=== PATIENT | female | born 1955 | race Caucasian/White ===

== ENCOUNTER → 2022-05-01 13:15 | Outpatient (CLI) | payer OTHER, SELFPAY ==
--- NOTE | ~2022-05-01 | MR_ITS ---
EXAMINATION: MR abdomen wo/w con INDICATION: Lesion of the liver TECHNIQUE: Coronal SSFSE ARC, WATER:coronal LAVA-FLEX, Coronal 2D FIESTA FatSat, Axial SSFSE BH ARC, Axial 3D DualEcho BH, Axial SSFSE-IR, Axial DWI b=500, Axial 2D FIESTA FatSat, pre and dynamic postco ntrast Axial LAVA ARC, postcontrast Coronal In and Opposed phase LAVA FLEX COMPARISON: None available CONTRAST: Multihance, 9 cc FINDINGS: Respiratory motion artifact limits multiple sequences as well as a postcontrast sequences. Cysts of the liver measure up to 9 mm. No suspicious liver lesion is identified. There is loss of hep atic parenchymal signal on opposed phase imaging, consistent with hepatic steatosis. There is a large volume of ingested material in the stomach. The spleen, pancreas, gallbladder, and adrenal glands ar e normal. Cysts of the kidneys measure up to 4 mm on the right. There are no pathologically enlarged abdominal lymph nodes. There are no dilated loops of bowel. A large volume of colonic stool is presen t. IMPRESSION: 1. No suspicious liver lesion identified. Reviewed, dictated and finalized at location F. ONICS ENGINEER
== END ==
PROVIDERS: PCP Physician Assistant; Visit Provider Physician Assistant
DX: K76.9 Liver disease, unspecified (principal)
CPT/HCPCS: 74183; A9577

== ENCOUNTER 2023-12-11 08:53 | Outpatient (CLI) | payer OTHER, SELFPAY ==
[2023-12-11 11:03] LABS: Folic Acid > 20.0 ng/mL (2.76->20)
--- NOTE | 2023-12-11 12:45 | NEURO_ITS ---
Clinical note: : Patient is 68-year-old with history of paresthesias in both upper limbs. No history of diabetes mellitus. On a brief neurological examination no focal muscle wasting or fasciculations or weakness was identified in the upper limbs. Please refer to a detailed electrodiagnostic evaluation of upper limbs has shown below. Summary of findings: 1. Right median motor distal latency was mildly prolonged with left median motor distal latency was normal. Amplitudes were decreased on both sides. Conduction velocity is also mildly decreased. 2. Left and right ulnar motor distal latency was normal however amplitude was moderately decreased on the left and normal on the right side. Conduction velocity to a mildly decreased from elbow to wrist but showed moderate decreased conduction velocity across the elbow 3. Bilateral median palmar and digital sensory Raquel that is a mildly prolonged amplitudes are moderately decreased. Bilateral ulnar palmar sensory distal latency was normal on right and mildly prolonged on the left side however amplitudes of moderate decreased. Ulnar sensory distal latencies of more to prolonged and amplitude is moderately decreased. Bilateral radial sensory distal latencies mild moderately prolonged and amplitudes are significantly decreased. 4. EMG g up on both upper limbs the history was C5-T1 root distribution. Mild also motor unit recruitment was noted in 1st dorsal interossei on both sides and also left abductor pollicis brevis. Impression: 1. [id number] length-dependent, sensory-motor, axonal, peripheral neuropathy. Clinical correlation is recommended. EMG and nerve conduction study of the lower limbs is also recommended. 2. 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 Mild loss of recruitment was noted in 1st dorsal interossei in both sides and also right digitorum profundus ulnar heads. Soren Hernandez MD, FAAN, FAANEM Neurology/ Electrodiagnostic Medicine Nerve Conduction Studies Motor Nerve Results Latency Amplitude F-Lat Segment Distance CV Comment Site (ms) (mV) (ms) (cm) (m/s) Left Median (APB) Motor Wrist 4.2 3.2 Elbow 8.9 2.6 Elbow-Wrist 220 47 Right Median (APB) Motor Wrist 4.5 4.6 Elbow 9.4 4.8 Elbow-Wrist 210 43 Left Ulnar (ADM) Motor Wrist 3.3 3.6 Bel Elbow 8.1 3.1 Bel Elbow-Wrist 200 42 Abv Elbow 10.2 3.0 Abv Elbow-Bel Elbow 70 33 Right Ulnar (ADM) Motor Wrist 3.0 6.2 Bel Elbow 7.6 4.2 Bel Elbow-Wrist 200 43 Abv Elbow 10.1 2.9 Abv Elbow-Bel Elbow 70 28 Sensory Nerve Results Latency (Peak) Amplitude (P-P) Segment Distance CV Comment Site (ms) (?V) (cm) (m/s) Right Median DigIII Sensory Wrist-Dig III 4.2 10 Left Median-Ulnar Palmar Sensory Median Palm-Wrist 2.3 7 Palm-Wrist 80 35 Ulnar Palm-Wrist 2.4 5 Palm-Wrist 80 33 Right Median-Ulnar Palmar Sensory Median Palm-Wrist 2.4 17 Palm-Wrist 80 33 Ulnar Palm-Wrist 2.2 6 Palm-Wrist 80 36 Left Radial Sensory Forearm-Wrist 2.7 7 Forearm-Wrist 100 37 Right Radial Sensory Forearm-Wrist 2.3 7 Forearm-Wrist 100 43 Right Ulnar Sensory Wrist-Dig V 4.1 6 Wrist-Dig V 150 37 Electromyography Side Muscle Nerve Ins Act Fibs Psw Amp Dur Recrt Comment Right Deltoid Axillary Nml Nml Nml Nml Nml Nml Right Triceps Radial Nml Nml Nml Nml Nml Nml Right ExtCarUln Radial (Post Int) Nml Nml Nml Nml Nml Nml Right FlexPolLong Median (Ant Int) Nml Nml Nml Nml Nml Nml Right 1stDorInt Ulnar Nml Nml Nml Incr >12ms +1 Right Abd Poll Brev Median Nml Nml Nml Nml Nml Nml Right FlexDigProf Ulnar Nml Nml Nml Incr >12ms +1 Left Deltoid Axillary Nml Nml Nml Nml Nml Nml Left Triceps Radial Nml Nml Nml Nml Nml Nml Left ExtCarUln Radial (Post Int) Nml Nml Nml Nml Nml Nml Left FlexPolLong Median (Ant Int) Nml Nml Nml Nml Nml Nml Left 1stDorInt Ulnar Nml Nml Nml Incr >12ms +1 Left Abd Poll Brev Median Nml Nml Nml Incr >12ms +1 Left FlexDigProf Ulnar Nml Nml Nml Nml Nml Nml MTDD
[2023-12-15 11:59] LABS: Homocysteine 11.8 umol/L (<10.4)
[2023-12-16 14:34] LABS: Vitamin D 1,25 (OH)2 Total 104 pg/mL (18-72); Vitamin D2 1,25 (OH)2 <8 pg/mL; Vitamin D3 1,25 (OH)2 104 pg/mL
[2023-12-16 15:43] LABS: Methylmalonic Acid 206 nmol/L (69-390)
== END 2023-12-11 08:54 | disposition home or self-care (01) ==
PROVIDERS: PCP Physician Assistant; Visit Provider Psychiatry & Neurology Neurology
DX: G56.23 Lesion of ulnar nerve, bilateral upper limbs (principal); G60.8 Other hereditary and idiopathic neuropathies; E55.9 Vitamin D deficiency, unspecified; E11.9 Type 2 diabetes mellitus without complications; G40.909 Epilepsy, unspecified, not intractable, without status epilepticus; W19.XXXA Unspecified fall, initial encounter
CPT/HCPCS: 36415; 82607; 82652; 82746; 83090; 83921; 84443; 95886; 95911

== ENCOUNTER 2023-12-12 09:59 | Outpatient (CLI) | payer OTHER, SELFPAY ==
--- NOTE | 2023-12-18 10:11 | WPDNEUROLOGY ---
Neurology EEG Report General Information Date of Study: 12/12/23 TEST electroencephalogram DIAGNOSIS seizure disorder CONDITION OF RECORDING Neurology lab EEG NUMBER [id number] CLINICAL HISTORY History of seizure disorder EEG DESCRIPTION During wakefulness the background activity consists of posterior dominant alpha rhythm at 10-11 hertz to with an amplitude of 20-40 microvolts which appears well-formed and reactive to light. Anteriorly low amplitude mixed frequency activity was seen. There is a good anteroposterior gradient. Hyperventilation was performed for 3 minutes during which no significant abnormal background changes were seen. Photic stimulation was also performed during which no abnormal changes or driving response was noted. Did not progress to stage 2 sleep. Towards the later part of the study rare sharp transients were noted over left temporal area. IMPRESSION This is a borderline abnormal EEG due to presence of rare sharp transients noted over left temporal area. This is considered a nonspecific focal interictal abnormality and should be clinically correlated.
== END 2023-12-12 10:00 | disposition home or self-care (01) ==
PROVIDERS: PCP Physician Assistant; Visit Provider Psychiatry & Neurology Neurology
DX: G40.909 Epilepsy, unspecified, not intractable, without status epilepticus (principal); R20.0 Anesthesia of skin; Z87.828 Personal history of other (healed) physical injury and trauma; W19.XXXA Unspecified fall, initial encounter
CPT/HCPCS: 95816

== ENCOUNTER 2025-01-06 12:40 | Outpatient (CLI) | payer OTHER, SELFPAY ==
--- OUTSIDE RECORDS SUMMARY | 2024-03-24 03:20 | XMS_ITS ---
Author Organization [facility] Address [address] [place] [address] Care Team Providers Care Beater Head Name Role Phone Melisa Adhikari Primary Care Provider REASON FOR VISIT 3 Month Psych F/U & Med Refill Encounters Encounter Location Date Provider Diagnosis [place] [address] [facility] [place] [address] 03/24/2024 Melisa Adhikari Plan Of Treatment No Information Progress Notes * Jerry NORWOODOB:1955 (69 yo F)Acc No.[id number]:03/24/2024 UNLOCKED PROGRESS NOTE Patient: Tita GOLDMAN Provider: Freeman Adhikari DNP, PEPITO-KYLER, MEDICAL TYPIST :1955 A ge:69 Y S ex:Female Date:03/24/2024 Address:[address] [place], [place] [id number] Subjective: * Chief Complaints: * 1 . 3 Month Psych F/U & Med Refill. * Medical History: Objective: * Vitals: Assessment: Plan: * Treatment: * * Electronic signature of Yulia Adhikari on 01/06/2025 at 07:40 PM CLIENT RELATIONS REPRESENTATIVE Sign off status: Pending * Provider: Freeman Adhikari DNP, PEPITO-BC, MEDICAL TYPIST Date: 0 03/24/2024 Generated for Printing/Faxing/eTransmitting on: 03/08/2024 07:40 PM CLIENT RELATIONS REPRESENTATIVE
[2025-01-06 16:46] LABS: Hemoglobin A1C 5.7 % (<5.7)
--- OUTSIDE RECORDS SUMMARY | 2025-01-06 19:40 | XMS_ITS | Patient Health Record ---
Author Organization [facility] Address [address] [place] [address] Care Team Providers Care Java Consultant Name Role Phone Melisa Adhikari Primary Care Provider Allergies No Known Allergies Reason For Referral No Information Medications Medication SIG (Take, Route, Frequency, Duration) Notes Start Date End Date Status Advair Diskus 100-50 MCG/DOSE 1 puff Inhalation Twice a day Active clonazePAM 0.5 MG 1 tablet as needed O rally twice a day; Duration: 30 days 01/04/2025 Active PriLOSEC 2.5 MG as directed Orally Active amLODIPine Besylate 2.5 MG 1 tablet Oral ly Once a day; Duration: 30 day(s) Active OLANZapine 2.5 MG 1 tablet Orally Once a day; Duration: 30 days Active Venlafaxine HCl ER 37.5 MG 1 capsule wit h food Orally Once a day; Duration: 30 days 01/04/2025 Active Mirtazapine 45 MG 1 tablet Orally Once a day; Duration: 30 days Active Keppra 500 MG 1 tablet Orally ever y 12 hrs; Duration: 30 day(s) Active Venlafaxine HCl ER 150 MG 1 capsule with food Orally Once a day; Duration: 30 days Active Immunizations Vaccine Route Administration Date Status Comme nts COVID-19 Pfizer Vaccine 1ST IM Intramuscular 07/06/2021 Administered Given at [facility] Social History Tobacco Use: Social History Observation Description Date Details (start date - stop date) Unknown Tobacco Control (Standard) Question Answer Notes Tobacco use: Uses tobacco in other forms Additional Findings: Tobacco user e-cigarette Problems Problem Type SNOMED Code ICD Code Onset Dates Problem Status W/U Status Risk Notes Problem Tobacco user (123663656) Nicotine dependence, unspecified, uncomplicated (F17.200) Active confirmed Problem Generalized anxiety disorder (24651401) AUSTEN (generalized anxiety disorder) (F41.1) Active confirmed Problem Moderate recurrent major depression (84188935) Moderate episode of recurrent major depressive disorder (F33.1) Active confirmed Encounters Encounter Location Date Provider Diagnosis [facility] [address] [place] [address] 03/11/2024 Melisa Adhikari Moderate episode of recurrent major depressive disorder F33.1 and AUSTEN (generalized anxiety disorder) F41.1 [facility] [address] [place] [address] 07/06/2024 Melisa Adhikari Moderate episode of recurrent major depressive disorder F33.1 and AUSTEN (generalized anxiety disorder) F41.[address] [address] 10/15/2024 Melisa Adhikari Moderate episode of recurrent major depressive disorder F33.1 and AUSTEN (generalized anxiety disorder) F41.1 [facility] [address] [place] [address] 01/04/2025 Melisa Adhikari Moderate episode of recurrent major depressive disorder F33.1 and AUSTEN (generalized anxiety disorder) F41.[address] [address] 03/12/2024 Melisa Adhikari Moderate episode of recurrent major depressive disorder F33.[address] [address] 09/30/2024 Melisa Adhikari Moderate episode of recurrent major depressive disorder F33.[address] [address] 10/11/2024 Melisa Adhikari [address] [place] [address] 10/13/2024 Melisa Adhikari [address] [place] [address] 12/16/2024 Melisa Adhikari [address] [address] 12/23/2024 Melisa Adhikari Assessments Encounter Date Diagnosis (ICD Code) Assessment Notes Treatment Notes Treatment Clinical Notes Section Notes 03/11/2024 Moderate episode of recurrent major depressive disorder (ICD-10 - F33.1) Continue current medications. Reviewed Prescription Monitoring program. Continue services as scheduled. Labs completed recently. May self-administer medications or be administered own oral medications per [place] protocols. Provided informed consent with understanding of side effects, adverse effects, risks and benefits as well as alternative treatments as previously discussed and with the above recommended medications & other aspects of the treatment program. Agrees to return sooner if symptoms worsen or suicidal or homicidal ideations occur. 03/12/2024 Moderate episode of recurrent major depressive disorder (ICD-10 - F33.1) 07/06/2024 Moderate episode of recurrent major depressive disorder (ICD-10 - F33.1) Continue current medications. Reviewed Prescription Monitoring program. Continue services as scheduled. Labs completed recently. May self-administer medications or be administered own oral medications per [place] protocols. Provided informed consent with understanding of side effects, adverse effects, risks and benefits as well as alternative treatments as previously discussed and with the above recommended medications & other aspects of the treatment program. Agrees to return sooner if symptoms worsen or suicidal or homicidal ideations occur. 09/30/2024 Moderate episode of recurrent major depressive disorder (ICD-10 - F33.1) 10/15/2024 Moderate episode of recurrent major depressive disorder (ICD-10 - F33.1) Continue current medications. Reviewed Prescription Monitoring program. Continue services as scheduled. Labs completed recently. May self-administer medications or be administered own oral medications per [place] protocols. Provided informed consent with understanding of side effects, adverse effects, risks and benefits as well as alternative treatments as previously discussed and with the above recommended medications & other aspects of the treatment program. Agrees to return sooner if symptoms worsen or suicidal or homicidal ideations occur. 01/04/2025 Moderate episode of recurrent major depressive disorder (ICD-10 - F33.1) Wanted clonazepam increased. Increased effexor instead to help with anxiety. Educated on increase in klonopin not advised due to increased fall risk, she is also on a muscle relaxer, and ambien from another provider. Labs done recently. Continue services as scheduled. 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 Provided informed consent with understanding of side effects, adverse effects, risks and benefits as well as alternative treatments as previously discussed and with the above recommended medications & other aspects of the treatment program. Agrees to return sooner if symptoms worsen or suicidal or homicidal ideations occur. 01/04/2025 AUSTEN (generalized anxiety disorder) (ICD-10 - F41.1) 10/15/2024 AUSTEN (generalized anxiety disorder) (ICD-10 - F41.1) 07/06/2024 AUSTEN (generalized anxiety disorder) (ICD-10 - F41.1) 03/11/2024 AUSTEN (generalized anxiety disorder) (ICD-10 - F41.1) Plan Of Treatment No Information Insurance Providers Payer Name Payer Address Payer Phone Subscriber Number Group Number Insured Name Patient Relationship to Insured Coverage Start Date Coverage End Date [facility] [place] [address] [place] [address] [phone] [id number] Tita Alvarez Self - patient is the insured 1 1 Medical (General) History Medical History History ICD Code Anemia Hypertension Hx Pelvic and arm fracture after a fall. Surgical History Surgery Date(Month/Year) Gastro surgery- related to severe ulcers . Hysterectomy
--- OUTSIDE RECORDS SUMMARY | 2025-01-06 19:41 | XMS_ITS | Data Portability ---
Author Organization [facility] [employer], Main Office Address [address] [place] [address] Assessment No assessment recorded. Plan of Treatment Reminders Order Date Submit Date Provider Last Modified By Organization Details Last Modified Time Details Appointments None recorded. Lab BMP, serum or plasma 2022 023 [facility], [address] [place] [address], [id number], 3 09:50:32 hepatic function panel, serum 2022 023 [facility], [address] [place] [address], [address], 3 09:50:32 TSH + free T4, serum 2022 023 [facility], [address] [place] [address], [address], 3 09:50:32 lipid panel, serum 2022 023 [facility], [address] [place] [address], [address], 3 09:50:32 Referral None recorded. Procedures None recorded. Surgeries None recorded. Imaging None recorded. Medication Orders cephalexin 500 mg capsule 2022 023 [facility] #[id number], [address] , [place], [address], 3 14:44:17 Patient TargetsNo targets recorded. Patient InstructionsNo instructions recorded. Reason for Referral None Reported. Results Created Date Observation Date Name Description Value Unit Range Abnormal Flag Note LastModifiedBy Organization Detail LastModifiedTime 01/30/20 22 01/29/2022 NM, hepat obili loco scan, w/o CCK No observ ation record ed. [id number] [facility] ([facility] Sched[facility]) [address] [place], [address], 05/01/2022 06:20:03 03/26/19 23 03/26/2022 CT, abdom en + pelvi s, w/ contr ast No observ ation record ed. [id number] [facility] ([facility] Scheduling) [address] [place], [address], 05/01/2022 06:20:03 10/31/19 23 05/01/2022 MR, angio gram, abdom en, w/wo contr ast No observ ation record ed. [email or web address] [facility] [address], [place], [address], 11/05/2022 15:53:09 08/04/19 24 08/04/2023 imagi ng/di agnos tic resul t No observ ation record ed. [email or web address] [facility] [address] [place], [address], 08/05/2023 09:15:02 Result Notes None recorded. Problems Name Problem SNOMED Code Status Onset Date Resolution Date Notes Provider Name and Address Organization Details Recorded Time Abnormal weight gain 830436967 Active Not Available [facility] 3 06:08:40 Dyspnea 696446792 Active Not Available [facility] 3 06:08:42 Low back pain 037991169 Active Not Available [facility] 3 06:08:43 Pain in right lower limb 093848849 Active Not Available [facility] 3 06:08:43 Sinusitis 52602300 Active Not Available [facility] 3 06:08:44 Itching of skin 095731471 Active Not Available [facility] 3 06:08:45 Hypokalemi a 43424693 Active Not Available [facility] 3 06:08:45 Viral syndrome 320105829 Active Not Available [facility] 3 06:08:45 Upper respirator y infection 99433373 Active Not Available [facility] 3 06:08:46 Rhinitis 38912313 Active Not Available [facility] 3 06:08:47 Hardy's esophagus 717382049 Active 2016 Not Available [facility] 3 06:08:43 Liver function tests outside reference range 204622500 Active 2016 Not Available [facility] 3 06:08:40 Smoker 61904433 Active 2016 Not Available [facility] 3 06:08:47 Chronic obstructiv e pulmonary disease 53775074 Active 2018 Not Available [facility] 3 06:08:40 Anxiety state 544011598 Active 2018 Not Available [facility] 3 06:08:41 Anemia 938711113 Active 2018 Not Available [facility] 3 06:08:42 Depressive disorder 62081700 Active 2018 Not Available [facility] 3 06:08:44 Sleep disorder 60387349 Active 2018 Not Available [facility] 3 06:08:44 Herpes zoster 3878431 Active 2018 Not Available [facility] 3 06:08:46 Epilepsy 27849589 Active 2018 Not Available [facility] 3 06:08:48 Insomnia 320069888 Active 2020 Not Available [facility] 3 06:08:41 Gastroesop hageal reflux disease 458376956 Active 2020 Not Available [facility] 3 06:08:41 Benign essential hypertensi on 3061058 Active 2021 Not Available [facility] 3 06:08:40 Gastroesop hageal reflux disease without esophagiti s 331131116 Active 2021 Not Available [facility] 3 06:08:42 Long-term drug therapy Active 2021 Not Available [facility] 3 06:08:42 Anxiety 01477658 Active 2021 Not Available [facility] 3 06:08:46 Hyperlipid emia 53701531 Active 2021 Not Available [facility] 3 06:08:46 Iron deficiency anemia 53755709 Active 2021 Not Available [facility] 3 06:08:48 Hammer toe 092506194 Active 2021 Not Available [facility] 3 06:08:40 Pain in bilateral feet 8477201829830 9102 Active 2021 Not Available [facility] 3 06:08:40 Foot callus 691159344 Active 2021 Not Available [facility] 3 06:08:41 Bunion 934886244 Active 2021 Not Available [facility] 3 06:08:44 Bunion 787435948 Active 2021 Not Available [facility] 3 06:08:45 Pain in right foot 2478464224091 07 Active 2021 Not Available [facility] 3 06:08:43 Edema of right lower limb 078319210 Active 2021 Not Available [facility] 3 06:08:48 Hammer toe 335646628 Active 2021 Not Available [facility] 3 06:08:40 Pain in toe 972130172 Active 2021 Not Available [facility] 3 06:08:43 [place] of toe 46782807 Active 2021 Not Available [facility] 3 06:08:45 Dystrophia unguium 01629874 Active 2021 Not Available [facility] 3 06:08:48 Steatotic liver disease 011756017 Active 2021 Not Available [facility] 3 06:08:41 Gallstone 536433428 Active 2021 Not Available [facility] 3 06:08:41 Liver enzymes level above reference range 632487632 Active 2021 Not Available [facility] 3 06:08:47 Jaundice 76594091 Active 2022 Not Available [facility] 3 06:08:40 Eruption 438177545 Active 2022 Not Available [facility] 3 06:08:42 Pruritic rash 00406452 Active 2022 Not Available [facility] 3 06:08:47 Abnormal weight loss 628629860 Active 2022 Not Available [facility] 3 06:08:42 Stasis dermatitis 01269745 Active 2022 Not Available [facility] 3 06:08:44 Enlarged adrenal gland 486421181 Active 2022 Not Available [facility] 3 06:08:42 Lesion of liver 346364189 Active 2022 Not Available [facility] 3 06:08:43 Claustroph obia 44180012 Active 2022 Not Available [facility] 3 06:08:41 Abrasion of skin of right upper arm 3558194236240 9103 Active 2022 [facility] Robertson [address] [place] [address], [phone] , [facility] [employer] [facility] 3 14:44:02 Problem Notes None recorded. Procedures Surgical History Date Name Laterality Status Provider Name and Address Organization Details Recorded Time 01/02/20 18 Date of Last Colonoscopy completed Not Available [facility] 05/01/2022 06:00:01 01/02/20 18 Colonoscopy completed Not Available [facility] 05/02/19 06:00:07 03/03/19 10 Orthopedic Surgery completed Not Available [facility] 05/01/2022 06:00:07 other completed Not Available [facility] 03/2022 06:00:07 other completed Not Available [facility] 03/2022 06:00:07 Hysterectomy completed Not Available [facility] 05/01/2022 06:00:07 Imaging Results None recorded. Procedure Notes None recorded. Medical Equipment None Reported. Allergies Allergen ID Allergen Name Allergen Category Reaction Reaction Severity Criticality Documentation Date Start Date Code Code System Note Provider Name and Address Organization Details Recorded Time 69001 gabapenti n medicatio n diarrhea Not available Not available 05/01/2022 95140 RxNorm Not Available [facility] 3 06:19:33 Medications Name Sig Start Date Stop Date Status Note LastModified by Organization Details LastModified Time carisoprodo l 350 mg tablet TAKE 1 TABLET BY MOUTH TWICE A DAY NEEDED active Not Available Not Available No t Available celecoxib 200 mg capsule 03/17 completed Not Available Not Available Not Available amoxicillin 500 mg capsule TAKE 1 CAPSULE BY MOUTH THREE TIMES A DAY UNTIL GONE active Not Available Not Available No t Available fluconazole 100 mg tablet 12/17 completed Not Available Not Available Not Available nystatin 100,000 unit/mL oral suspension active Not Available Not Available N ot Available venlafaxine ER 37.5 mg capsule,ext ended release 24 hr TAKE 1 CAPSULE BY MOUTH EVERY DAY WITH FOOD FOR 30 DAYS 03/06 completed Not Available Not Available Not Available prednisone 10 mg tablet 20 x 5 days, 10 x 5 days active Not Available Not Available No t Available venlafaxine ER 75 mg capsule,ext ended release 24 hr TAKE 1 CAPSULE BY MOUTH EVERY DAY WITH FOOD FOR 30 DAYS active Not Available Not Available No t Available doxycycline hyclate 100 mg capsule Take 1 capsule twice a day by oral route. 12/17 completed Not Available Not Available Not Available ammonium lactate 12 % lotion APPLY TWICE DAILY NEEDED active Not Available Not Available No t Available trazodone 50 mg tablet Take 1 tablet every day by oral route at bedtime for 90 days. 03/31 completed Not Available Not Available Not Available triamcinolo ne acetonide 0.5 % topical cream APPLY A THIN APPLICATI ON ONTO THE LOWER LEG RASH TWICE DAILY ONLY NEEDED active Not Available Not Available No t Available azithromyci n 250 mg tablet TAKE 2 TABLETS (500 MG) BY ORAL ROUTE ONCE DAILY FOR 1 DAY THEN 1 TABLET (250 MG) BY ORAL ROUTE ONCE DAILY FOR 4 DAYS 02/21 completed Not Available Not Available Not Available levetiracet am 500 mg tablet TAKE 1 TABLET BY MOUTH TWICE A DAY. MAKE/KEEP APPOINTME NT active Not Available Not Available No t Available hydrocodone 5 mg-acetamin ophen 325 mg tablet Take 1 tablet 3 times a day by oral route as needed. 03/17 completed Not Available Not Available Not Available clotrimazol e-betametha sone 1 %-0.05 % lotion APPLY TO THE SKIN ONCE EVERY 12 HOURS 03/21 completed Not Available Not Available Not Available meloxicam 15 mg tablet Take 1 tablet every day by oral route. 03/17 completed Not Available Not Available Not Available sucralfate 1 gram tablet Take 1 tablet twice a day by oral route. 03/17 completed Not Available Not Available Not Available prednisone 20 mg tablet TAKE 3 TABLETS BY MOUTH ONCE DAILY FOR 5 DAYS 03/22 completed Not Available Not Available Not Available clonazepam 0.5 mg tablet TAKE 1 TABLET BY MOUTH TWICE A DAY NEEDED FOR 30 DAYS active Not Available Not Available No t Available olanzapine 5 mg tablet TAKE 1 TABLET BY MOUTH EVERYDAY AT BEDTIME active Not Available Not Available No t Available permethrin 5 % topical cream APPLY 1 APPLICATI ON ONCE, LEAVE ON FOR 8-14 HOURS BEFORE WASHING OFF 04/17 completed Not Available Not Available Not Available venlafaxine ER 150 mg capsule,ext ended release 24 hr TAKE 1 CAPSULE BY MOUTH EVERY DAY WITH FOOD active Not Available Not Available No t Available olanzapine 10 mg tablet TAKE 1 TABLET BY MOUTH EVERY DAY active Not Available Not Available No t Available Advair Diskus 100 mcg-50 mcg/dose powder for inhalation TAKE 1 PUFF BY MOUTH TWICE A DAY *RINSE MOUTH AFTER USE* 2022 active Not Available Not Available Not Avai lable amlodipine 2.5 mg tablet TAKE 1 TABLET BY MOUTH EVERY DAY IN THE EVENING active Not Available Not Available No t Available potassium chloride ER 10 mEq tablet,exte nded release Take 2 tablets every day by oral route. active Not Available Not Available No t Available Klor-Con 20 mEq oral packet MIX 1 PACKET IN 6 OZ OF WATER/JUI CE AND DRINK TWICE DAILY AFTER MEALS active Not Available Not Available No t Available fexofenadin e 180 mg tablet TAKE ONE TABLET DAILY 12/17 completed Not Available Not Available Not Available olanzapine 2.5 mg tablet TAKE 1 TABLET BY MOUTH EVERY DAY active Not Available Not Available No t Available omeprazole 40 mg capsule,del ayed release Take 1 capsule every day by oral route. 2023 active Not Available Not Available Not Avai lable aspirin 81 mg tablet,pietro yed release active Not Available Not Available Not Available tramadol 50 mg tablet Take 1 tablet every 6 hours by oral route. 03/17 completed Not Available Not Available Not Available acyclovir 800 mg tablet Take 1 tablet 5 times a day by oral route for 10 days. active Not Available Not Available No t Available alprazolam 0.5 mg tablet TAKE ONE TABLET TWICE DAILY NEEDED active Not Available Not Available No t Available Valium 5 mg tablet take 1-2 tabs po prior to MRI testing active Not Available Not Available No t Available benzonatate 100 mg capsule Take 1 capsule 3 times a day by oral route. active Not Available Not Available No t Available cephalexin 500 mg capsule TAKE 1 CAPSULE BY MOUTH EVERY 8 HOURS FOR 7 DAYS. active Not Available Not Available No t Available mirtazapine 30 mg tablet TAKE 1 TABLET BY MOUTH EVERY DAY AT BEDTIME FOR 30 DAYS 10/10 completed Not Available Not Available Not Available ferrous sulfate 325 mg (65 mg iron) tablet TAKE 1 TABLET BY MOUTH EVERY DAY WITH BREAKFAST active Not Available Not Available No t Available nystatin-tr iamcinolone 100,000 unit/g-0.1 % topical cream active Not Available Not Available Not Available triamcinolo ne acetonide 0.025 % topical ointment APPLY A THIN LAYER TO THE AFFECTED AREA(S) BY TOPICAL ROUTE 2 TIMES PER DAY active Not Available Not Available No t Available omeprazole 20 mg capsule,del ayed release TAKE 1 CAPSULE BY MOUTH EVERY DAY 03/14 completed Not Available Not Available Not Available Banophen 25 mg capsule TAKE 1 CAPSULE BY MOUTH EVERY 6 HOURS NEEDED FOR ALLERGY CONTROL active Not Available Not Available No t Available gentamicin 0.1 % topical cream APPLY A THIN LAYER WITH THE TRIAMCINO LONE CREAM TWICE DAILY TO LOWER LEG RASH USE NEEDED active Not Available Not Available No t Available mirtazapine 45 mg tablet TAKE 1 TABLET BY MOUTH EVERY DAY FOR 30 DAYS active Not Available Not Available No t Available folic acid 1 mg tablet Take 1 tablet every day by oral route. active Not Available Not Available No t Available etodolac 400 mg tablet active Not Available Not Available Not Available montelukast 10 mg tablet Take 1 tablet every day by oral route. active Not Available Not Available No t Available hydroxyzine HCl 25 mg tablet TAKE ONE TABLET DAILY AT BEDTIME 09/28 completed Not Available Not Available Not Available diclofenac sodium 50 mg tablet,pietro yed release TAKE ONE TABLET TWICE DAILY WITH FOOD OR MILK 08/06 completed Not Available Not Available Not Available zolpidem 5 mg tablet TAKE 1 TABLET BY MOUTH EVERY DAY AT BEDTIME *DO NOT TAKE WITH CARISOPRO DOL* 2023 active Not Available Not Available Not Avai lable mirtazapine 15 mg tablet TAKE 1 TABLET BY MOUTH EVERY DAY AT BEDTIME FOR 30 DAYS 06/26 completed Not Available Not Available Not Available gabapentin 100 mg capsule Take 1 capsule 3 times a day by oral route. 03/17 completed Not Available Not Available Not Available mirtazapine 15 mg disintegrat ing tablet Place 1 tablet every day by transling ual route. 09/16 completed Not Available Not Available Not Available zolpidem 10 mg tablet active Not Available Not Available No t Available methylpredn isolone 4 mg tablets in a dose pack use as instructe d on pack 02/21 completed Not Available Not Available Not Available albuterol sulfate HFA 90 mcg/actuati on aerosol inhaler INHALE 2 PUFFS EVERY FOUR HOURS NEEDED active Not Available Not Available No t Available fluticasone propionate 50 mcg/actuati on nasal spray,suspe nsion [place] 1 spray twice a day by intranasa l route. active Not Available Not Available No t Available doxycycline hyclate 100 mg tablet 03/17 completed Not Available Not Available Not Available olanzapine 5 mg disintegrat ing tablet Place 1 tablet every day by transling ual route. 09/16 completed Not Available Not Available Not Available clonazepam 0.5 mg disintegrat ing tablet Place 1 tablet twice a day by transling ual route. 09/16 completed Not Available Not Available Not Available rosuvastati n 5 mg tablet TAKE 1 TABLET BY MOUTH EVERY OTHER DAY active Not Available Not Available No t Available mirtazapine 7.5 mg tablet TAKE ONE TABLET DAILY AT BEDTIME 10/01 completed Not Available Not Available Not Available Symbicort 160 mcg-4.5 mcg/actuati on HFA aerosol inhaler INHALE 2 PUFFS TWICE A DAY active Not Available Not Available No t Available Dulera 100 mcg-5 mcg/actuati on HFA aerosol inhaler active Not Available Not Available Not Available Suprep Bowel Prep Kit 17.5 gram-3.13 gram-1.6 gram oral solution 03/17 completed Not Available Not Available Not Available potassium chloride ER 20 mEq tablet,exte nded release Take 1 tablet twice a day by oral route. 03/22 completed Not Available Not Available Not Available Flublok Quad (PF) 180 mcg (45 mcg x 4)/0.5 mL IM syringe IMMUNIZAT ION active Not Available Not Available No t Available Fluzone Quad (PF) 60 mcg (15 mcg x 4)/0.5 mL IM syringe active Not Available Not Available N ot Available Fluzone High-Dose Quad (PF) 240 mcg/0.7 mL IM syringe active Not Available Not Available N ot Available Vitals Date Recorded Body mass index (BMI) Body height Oxygen saturation Oxygen saturation in Arterial blood by Pulse oximetry Heart rate Body temperature Body weight Systolic And Diastolic Provider Name and Address Organization Details Last Updated DateTime 3 15.5 kg/m2 167.64 cm 96 % 96 % 99 /min 96.7 [degF] 18856.8 7 g 118/84 mm[Hg] Not Available [facility] 3 06:03:18 Date Recorded Body mass index (BMI) Body height Oxygen saturation Oxygen saturation in Arterial blood by Pulse oximetry Heart rate Respiratory rate Body temperature Body weight Provider Name and Address Organization Details Last Updated DateTime 3 16.9 kg/m2 167.64 cm 95 % 95 % 104 /min 16 /min 97.9 [degF] 23840.4 g Not Available [facility] 3 06:03:28 Date Recorded Body mass index (BMI) Body height Oxygen saturation Oxygen saturation in Arterial blood by Pulse oximetry Heart rate Respiratory rate Body temperature Body weight Systolic And Diastolic Provider Name and Address Organization Details Last Updated DateTime 3 16.5 kg/m2 167.64 cm 92 % 92 % 97 /min 16 /min 98.4 [degF] 21394.2 2 g 118/78 mm[Hg] Not Available [facility] 3 06:03:18 Date Recorded Body height Body mass index (BMI) Body weight Body temperature Heart rate Oxygen saturation Oxygen saturation in Arterial blood by Pulse oximetry Systolic And Diastolic Provider Name and Address Organization Details Last Updated DateTime 3 167.64 cm 18.1 kg/m2 42861.3 5 g 97.2 [degF] 102 /min 95 % 95 % 132/70 mm[Hg] Norma Payne RN [place] [facility] [employer] [facility] 3 14:15:35 Date Recorded Body height Heart rate Systolic And Diastolic Provider Name and Address Organization Details Last Updated DateTime 11/29/2021 167.64 cm 93 /min 138/79 mm[Hg] Not Available [facility] 05/01/2022 06:03:18 Social History Question Answer Notes LastModified by Organizat ion Details LastModified Time Tobacco Smoking Status Current Every Day Smoker Not Available [facility] 05/01/2022 05:57:39 What Is Your Level Of Caffeine Consumption? Heavy [id number] Information not available 05/01/2022 In The 14 Days Before Symptom Onset, Have You Had Close Contact With A Laboratory-confirm ed COVID-19 While That Case Was Ill? No [id number] Information not available 05/01/2022 In The 14 Days Before Symptom Onset, Have You Had Close Contact With A Person Who Is Under Investigation For COVID-19 While That Person Was Ill? No [id number] Information not available 05/01/2022 What Type Of Diet Are You Following? REGULAR [id number] Information not available 05/01/2022 Have There Been Any Changes To Your Family Or Social Situation? No [id number] Information not available 05/01/2022 Do You Use Insect Repellent Routinely? No [id number] Information not available 05/01/2022 What Was The Date Of Your Most Recent Tobacco Screening? 10/10/2021 [id number] Information not available 05/01/2022 Have You Ever Been Counseled For Unhealthy Alcohol Use? No [id number] Information not available 05/01/2022 What Is Your Relationship Status? [id number] Information not available 05/01/2022 Do You Use Your Seat Belt Or Car Seat Routinely? Yes [id number] Information not available 05/01/2022 Do You Have Smoke And Carbon Monoxide Detectors In Your Home? Yes [id number] Information not available 05/01/2022 At What Age Did You Start Smoking Tobacco? 17 [id number] Information not available 05/01/2022 How Much Tobacco Do You Smoke? No Vape [id number] [id number] Information not available 05/01/2022 Do You Use Sunscreen Routinely? Yes [id number] Information not available 05/01/2022 Has Tobacco Cessation Counseling Been Provided? No [id number] 026 Information not available 05/01/2022 Have You Recently Traveled Abroad? No [id number] Information not available 05/01/2022 Do You Have Any Dietary Restrictions? No [id number] Information not available 05/01/2022 Sex: Unknown Functional Status Question Answer Note LastModified by [employer] ion Details LastModified Time Do you use any illicit or recreational drugs? No [id number] Information not available 05/01/2022 Do you or have you ever used any other forms of tobacco or nicotine? Yes [id number] Information not available 05/01/2022 What is your level of alcohol consumption? Occasional [id number] Information not available 05/01/2022 Do you have transportation difficulties? No [id number] Information not available 05/01/2022 Are you able to walk independently without assistance or assistive devices? [employer] [id number] Information not available 05/01/2022 Do you have difficulty doing errands alone? No [id number] Information not available 05/01/2022 Are you able to care for yourself independently? Yes [id number] Information not available 05/01/2022 What is your occupation? [employer] [id number] Information not available 05/01/2022 Do you have difficulty dressing, bathing, grooming, or toileting? No [id number] Information not available 05/01/2022 Do you or have you ever used e-cigarettes or vape? Current user of electronic cigarettes [id number] Information not available 05/01/2022 What is your exercise level? None [id number] Information not available 05/01/2022 Mental Status None recorded. Family History Relationship Description Onset Age of this Age Resolved Age Notes LastModified by Organization Details LastModified Time Father No current problems or disability [id number] Not available 05/01/2022 06:00:11 Mother No current problems or disability [id number] Not available 05/01/2022 06:00:11 Mother General health good [id number] Not available 05/01/2022 06:00:11 Notes:mother is healthy and father not sure of health Medical History Condition Response SEIZURES/EPILEPSY Y ANXIETY DISORDER Y ANEMIA/BLOOD DISORDER Y ASTHMA Y DEPRESSION (INCLUDING POST ) Y HIGH CHOLESTEROL / HYPERLIPIDEMIA Y Gynecological History Statement/Question Response Date of Last Colonoscopy 01/01/2018 Obstetrics History GPAL:G 0 P 0 0 0 0 Immunizations Vaccine Type Date Status Note Provider Nam e and Address Organization Details Recorded Time Influenza, adjuvanted, quadrivalent, PF 3 completed ROBERTA García, [facility] [employer] [facility] [employer] 01/01/2023 14:42:12 SARS-COV-2 (COVID-19) vaccine, UNSPECIFIED 3 completed ROBERTA García, [facility] [employer] [facility] [employer] 01/01/2023 14:42:34 Influenza, split virus, trivalent, PF 3 completed Not Available [facility] 05/01/2022 06:19:06 Influenza, split virus, quadrivalent, preservative 0 completed Not Available [facility] 05/01/2022 06:19:06 Influenza, split virus, quadrivalent, preservative 8 completed Not Available [facility] 05/01/2022 06:19:06 Pneumococcal conjugate PCV 13 7 completed Not Available [facility] 05/01/2022 06:19:06 Influenza, split virus, trivalent, preservative 3 completed Not Available [facility] 05/01/2022 06:19:06 Influenza, split virus, quadrivalent, PF 7 completed Not Available [facility] 05/01/2022 06:19:06 Influenza, split virus, trivalent, preservative 4 completed Not Available [facility] 05/01/2022 06:19:07 Influenza, split virus, quadrivalent, PF 5 completed Not Available [facility] 05/01/2022 06:19:07 Past Encounters Encounter ID Performer Location Encounter Start Date Encounter Closed Date Diagnosis/Indication Diagnosis SNOMED-CT Code Diagnosis ICD10 Code Diagnosis IMO Codes Diagnosis Note [id number] TIMMY Robertson [facility] [place] [address] [place] [address] 09/29/2020 00:00:00 09/29/2020 15:51:09 [id number] TIMMY Robertson [facility] [place] [address] [place] [address] 02/07/2021 00:00:00 03/01/2021 13:11:50 [id number] TIMMY Robertson [facility] [place] [address] [place] [address] 03/30/2021 00:00:00 04/01/2021 09:51:38 [id number] Michael Plaza DPM [facility] [address] [address] 05/28/2021 00:00:00 05/28/2021 11:22:20 [id number] Michael Plaza DPM [facility] [address] [address] 06/11/2021 00:00:00 06/29/2021 15:07:12 [id number] Pola Lou MD [facility] [place] [address] [facility] [address], [facility] [place] [address] 06/26/2021 00:00:00 06/26/2021 22:30:51 [id number] Michael Plaza DPM [facility] [place] [address] [place] [address] 08/13/2021 00:00:00 08/13/2021 12:38:14 [id number] Pola Lou MD [facility] [place] [address] [place] [address] 10/10/2021 00:00:00 10/30/2021 21:05:31 [id number] Michael Plaza [facility]PM [facility] [place] [facility] [address] [place] [address] 11/29/2021 00:00:00 11/30/2021 10:33:30 [id number] TIMMY Robertson [facility] [place] [address] [place] [address] 03/06/2022 00:00:00 03/31/2022 17:14:46 [id number] TIMMY Robertson [facility] [place] [address] [place] [address] 03/21/2022 00:00:00 04/02/2022 18:25:28 [id number] TIMMY Robertson [facility] [place] [address] [place] [address] 04/17/2022 00:00:00 04/28/2022 22:49:21 [id number] TIMMY Robertson [facility] [place] [address] [place] [address] 10/16/2022 14:00:59 10/16/2022 14:50:06 Gastroesophageal reflux disease without esophagitis 712961441 K21.9 stable on PPI therapy Hyperlipidemia 53385574 E78.5 stable on statin therapy, due for lipids in nov. Stasis dermatitis 205128 05 I87.2 healing well, pt used PRN steroid cream when Lower ext. rash flares up Long-term drug therapy 373390128 Z79.899 routine labs due in nov. Abrasion o f skin of right upper arm [id number] S40.811A start keflex 500mg tid therapy for mild RUE skin abrasion. Health Concerns Section Related Observation LastModified by Organization Detai ls LastModified Time None Recorded Concern Status LastModified by Organization Details LastModified Time None Recorded Advance Directives Directive None Recorded Payers Insurance Date Sequence Insurance Name Policy Number Policy Figueredo Covered Member ID Figueredo Member ID Guarantor Name 07/27/2024 1 [facility] PRIOR TO 2024 ([facility]) [id number] Tita Alvarez [id number] Tita Alvarez 06/07/2024 1 [facility] [id number] Tiat Alvarez [id number] JOHNATHAN Alvarez 07/27/2024 1 *SELF PAY* Beverly alarcon Juan Jose Kim Notes Date Note Type Note Provider Name and Address Organization Details Recorded Time 3 text/html HyperlipidemiaReported by PatientHPIFor duration, patient reportschronic. For compliance, patient reportsdoes not exercisebut reportscompliant,compliant with diet, andexercises. For control, patient reportsusually well controlled,improving, andat goal. For complications, patient reportsno coronary artery disease,no peripheral artery disease, andno cardiovascular disease. HypertensionReported by PatientHPIFor onset/timing, patient reportsbetter. For associated symptoms, patient reportsno shortness of breath,no fatigue,no palpitations,no decline in exercise capacity, andno snoring. Anxiety/DepressionReported by PatientHPIFor severity, patient reportsdenies suicidal ideations,able to maintain relationships, anddoes not interfere with activities of daily living. For context, patient reportsno major life stressors. For associated symptoms, patient reportsdenies homicidal ideations,no significant weight gain,no significant weight loss,no visual/auditory hallucinations,no delusions, andno shortness of breath. Reflux/GERDReported by PatientHPIFor severity, patient reportsimproving. For context, patient reportsnon-smoker,no drug/alcohol abuse,no drug alcohol withdrawal, andnot related to food/drink. For associated symptoms, patient reportsno frequent coughing,no feeling of fullness/mass in throat,no hoarseness,no food getting stuck,no belching/burping,no vomiting,not vomiting blood,no regurgitation,no shortness of breath,no chest pain,no heartburn,no difficulty swallowing,no pain when swallowing,no bad taste,no decreased appetite,no weight loss,no black/tarry stools,no fatigue, andno throat pain. Sheeba Markham, TIMMY [address] [facility], [facility], [place], [address], [place] - [facility] 10/31/2022 21:26:41 OBGyn Episode No OBEpisode recorded.
--- OUTSIDE RECORDS SUMMARY | 2025-01-06 19:41 | XMS_ITS | Clinical Summary ---
Author Organization [facility] Address [address] [place] [address] Care Team Providers Care Construction Project Mgr Name Role Phone Sheeba Markham Primary Care Pr ovider Leonides Kearney DO Unavailable [phone] Allergies No known active allergies Medications levETIRAcetam (KEPPRA) 500 mg tablet 04/09/19 19 Active OLANZapine (ZyPREXA) 5 mg tablet 04/09/19 19 Active zolpidem (AMBIEN) 5 mg tabletIndicat ions:Sleep-On set Insomnia 04/14/19 19 Active carisoprodol (SOMA) 350 mg tabletIndicat ions:Muscle Spasm 04/14/19 19 Active omeprazole (PriLOSEC) 20 mg capsule 04/09/19 19 Active clonazePAM (KlonoPIN) 0.5 mg tablet 04/09/19 19 Active PROAIR HFA 90 mcg/actuation inhaler 02/21/20 18 Active fluticasone-s almeterol (ADVAIR DISKUS) 100-50 mcg/dose diskus inhaler 10/24/2016Advair diskus, inh 100-50 mcg Blister, with inhalation deviceBy inhalationBIDCurrent Medication 10/25/19 17 Active amLODIPine (NORVASC) 2.5 mg tablet 12/23/19 20 Active venlafaxine XR (EFFEXOR-XR) 37.5 mg 24 hr capsule 05/06/19 21 Active rosuvastatin (CRESTOR) 5 mg tablet Take 1 tablet (5 mg total) by mouth every other day 02/06/20 21 Active CALCIUM ORAL Take by mouth Act yanci folic acid (FOLVITE) 1 mg tablet TAKE 1 TABLET BY MOUTH EVERY DAY 30 tablet 5 11/23/19 23 Active potassium acetate, bulk, 100 % powder Active budesonide-fo rmoteroL (SYMBICORT) 160-4.5 mcg/actuation inhaler INHALE 2 PUFFS TWICE A DAY Active mirtazapine (REMERON) 45 mg tablet TAKE 1 TABLET BY MOUTH EVERY DAY FOR 30 DAYS 01/10/20 24 Active Klor-Con 20 mEq packet daily Active ammonium lactate (LAC-HYDRIN) 12 % lotion APPLY TWICE DAILY NEEDED Active ferrous sulfate 325 mg (65 mg of elemental iron) tablet TAKE 1 TABLET BY MOUTH EVERY DAY WITH BREAKFAST 90 tablet 1 12/02/19 25 Active Active Problems Problem Noted Date Diagnosed Date Iron deficiency anemia 01/12/2020 Encounter for management of implanted device 01/2020 Acquired iron deficiency anemia due to decreased absorption 04/20/2018 Encounters Date Type Department Care Team Description 12/15/2024 Telephone [facility] [address] [place] [phone] Ignacia Mcwilliams CMA from Last 3 Months Immunizations Immunization Administration Dates Next Due Influenza, Quadrivalent, Hig h Dose, Preservative Free, Intrr 11/07/2019 Influenza, Quadrivalent, Rec ombinant, Egg Free, Preservative Free, Intramuscular 12/17/2017 Influenza, Quadrivalent, Spl it, Preservative Free, Intramuscular 12/30/2018,02/04/2017,02/10/2015 Influenza, Trivalent, IM (MDV) 01/03/2014,2012 Influenza, Trivalent, Preser vative Free, Intramuscular 12/08/2012 Influenza, Unspecified 12/08/2017 Moderna SARS-CoV-2 Monovalen t Vaccination (12+ YRS) 06/16/2020,05/19/2020 Pfizer SARS-CoV-2 Monovalent Vaccination (12+ Yrs) PURPLE 01/20/2021 Pneumococcal Conjugate PCV 13 02/04/2017 ZOSTER LIVE 01/18/2016 Surgical History Surgery Date Site/Laterality Comments TOTAL ABDOMINAL HYSTERECTOMY W/ BILATERAL SALPINGOOPHORECTOMY PARTIAL GASTRECTOMY VAGOTOMY COLONOSCOPY Medical History Medical History Date Comments Anxiety and depression Osteoarthritis of back COPD (chronic obstructive pulmonary disease) wit h emphysema Epilepsy (HCC) Peptic ulcer disease Family History Medical History Relation Name Comments No Known Problems Father No Known Problems Mother Relation Name Status Comments Father Mother Alive Social History Tobacco Use Types Packs/Day Years Used Date Smoking Tobacco: Former Cigarettes 2 40 1 977 - 2016 Smokeless Tobacco: Never Alcohol Use Standard Drinks/Week Comments No 0 (1 standard drink = 0.6 oz pur e alcohol) AUDIT-C Answer Date Recorded Frequency of Alcohol Consumption Not on file 02/06/2023 Q2: How many drinks containi ng alcohol do you have on a typical day when you are drinking? 1 or 2 02/06/2023 Q3: How often do you have si x or more drinks on one occasion? 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 Not on file Not on file Not on file Last Filed Vital Signs Vital Sign Reading Time Taken Comments Blood Pressure 122/76 01/19/2024 3:07 PM WOOL SACKER Pulse 100 01/19/2024 3:07 PM WOOL SACKER Temperature 36.9 C (98.5 F) 01/19/2024 3:07 PM WOOL SACKER Respiratory Rate 16 01/19/2024 3:07 PM WOOL SACKER Oxygen Saturation 95% 01/19/2024 3:0 7 PM WOOL SACKER Inhaled Oxygen Concentration - - Weight 46.4 kg (102 lb 6.4 oz) 01/19/20 3:07 PM WOOL SACKER with shoes Height 166.4 cm (5' 5.5) 02/06/2023 1: 43 PM WOOL SACKER Body Mass Index 16.78 02/06/2023 1:43 PM WOOL SACKER Plan of Treatment Health Maintenance Due Date Last Done Comments Breast Cancer Screening-Mammogram 1954 Colon Cancer Screening-Colonoscopy 1954 Depression Screening 1954 Fall Risk Assessment 1954 Hepatitis C Screening 1954 Osteoporosis Screening-Bone Density Scan 1954 DTaP/Tdap/Td Vaccine (1 - Tdap) 1965 Hepatitis B Screening 02/24/1972 Lung Cancer Screening 02/24/2004 Zoster Vaccine (2 of 3) 03/14/2016 01/18/2016 Pneumococcal vaccine 65+ (2 of 2 - PPSV23, PCV20, or PCV21) 04/01/2017 02/04/2017 Well Visit 65+ 2019 Covid-19 Vaccine (4 - 2024-2 6 season) 2024 01/20/2021, 06/16/2020, 05/19/2020 Influenza Vaccine (#1) 2024 , 12/30/2018, 12/17/2017, Additional history exists Insurance [facility] H[facility]/PPO Address: [address] [address] [place] [address] [employer] O [facility] H[facility]/PPO Address: [address] [address] [place] [address] Care Teams Construction Project Mgr Relationship Specialty Start Date End Date Sheeba Markham PA PCP - General Physician Bailing Machine Operator 04/01/18 Leonides Kearney DO [address] [place] [address] [phone] Medical Oncologist/Glue Specialty Supervisor Hematology and Oncology 05/22/18
--- OUTSIDE RECORDS SUMMARY | 2025-01-06 19:41 | XMS_ITS | Data Portability ---
Author Organization [facility] Address [address] [place] [address] Care Team Providers Care Operating Room Manager Name Role Phone SHEEBA MARKHAM Primary Care Provider LINA Marina Neurologist Assessment Encounter Date Assessment Date Assessment LastModified by Organization Details LastModified Time 11/28/2023 11/28/2023 Hx of left UE fx july 31. Also fx pelvis on a fall. Not available 11/28/2023 15:06:54 08/20/2024 08/20/2024 Overall stable slight hyponatremia noted, metabolic panel overall stable except for protein is slightly low. Storage iron B12 folate are stable Not available 08/31/2024 07:16:31 11/05/2024 11/05/2024 Overall stable slight hyponatremia noted, metabolic panel overall stable except for protein is slightly low. Storage iron B12 folate are stable continuecare Not available 11/05/2024 15:24:49 Plan of Treatment Reminders Order Date Submit Date Provider Last Modified By Organization Details Last Modified Time Details Appointments ANY 15 2024 02:00P M TIMMY Robertson Not available Not available Not available Lab CBC w/ auto diff 2024 025 [facility], [address], [place], [address], 11/18/2024 13:58:48 cobalamin and folate panel, serum 2024 025 [facility], [address], [place], [address], 11/18/2024 13:58:57 hepatic function panel, serum 2024 [facility], [address], [place], [address], 11/18/2024 13:58:27 BMP, serum or plasma 2024 025 [facility], [address], [place], [address], 11/17/2024 10:04:07 TSH + free T4, serum 2024 025 [facility], [address], [place], [address], 11/18/2024 13:58:38 TSH + free T4, serum 2024 025 [facility], [address], [place], [address], 08/09/2024 20:37:23 HbA1c (hemoglob in A1c), blood [facility]24 [facility], [address], [place], [address], 09/15/2024 09:48:26 ferritin, serum or plasma 2024 025 [facility], [address], [place], [address], 09/15/2024 09:48:15 iron + total iron-bind ing capacity (TIBC), serum 2024 025 [facility], [address], [place], [address], 09/15/2024 09:48:15 cobalamin and folate panel, serum 2024 025 [email or web address], [address], [place], [address], 09/15/2024 09:48:15 CBC w/ auto diff 2024 025 [email or web address], [address], [place], [address], 09/15/2024 09:47:13 BMP, serum or plasma 2024 025 [email or web address], [address], [place], [address], 09/15/2024 09:47:39 hepatic function panel, serum 2024 025 [email or web address], [address], [place], [address], 09/15/2024 09:48:14 CBC w/ auto diff 2023 024 [facility], [address], [place], [address], 04/13/2024 11:08:11 hepatic function panel, serum 2023 024 [facility], [address], [place], [address], 04/13/2024 11:08:06 BMP, serum or plasma 2023 024 [facility], [address], [place], [address], 04/13/2024 11:08:07 TSH + free T4, serum 2023 024 [facility], [address], [place], [address], 04/13/2024 11:08:03 vitamin B12, serum 2023 024 [facility], [address], [place], [address], 01/30/2024 10:55:26 lipid panel, serum 2023 024 [facility], [address], [place], [address], 04/13/2024 11:08:05 ferritin, serum or plasma 2023 024 [facility], [address], [place], [address], 04/13/2024 11:08:10 iron + total iron-bind ing capacity (TIBC), serum 2023 024 [facility], [address], [place], [address], 04/13/2024 11:08:08 Referral speech therapy referral 2024 025 [email or web address] [facility], [address], [place], [address], 01/06/2025 15:08:23 nutrition ist/dieti víctor referral 2024 025 [email or web address] [facility], [address], [place], [address], 12/15/2024 10:50:02 Procedures None recorded. Surgeries None recorded. Imaging None recorded. Medication Orders megestrol 40 mg tablet [address] [facility]/Pharmacy #[id number], [address], [place], [address], 08/20/2024 14:45:57 triamcino lone acetonide 0.1 % topical cream [address] [facility]/Pharmacy #[id number], [address] , [place], [address], 08/20/2024 14:53:41 megestrol 40 mg tablet 2024 025 [email or web address] [facility]/Pharmacy #[id number], [address], [place], [address], 08/13/2024 15:21:42 nicotine 21 mg/24 hr daily transderm al patch 2024 025 LIAT [facility]/Pharmacy #[id number], [address], [place], [address], 07/21/2024 16:05:10 mupirocin 2 % topical ointment 2023 024 [email or web address] [facility]/Pharmacy #[id number], [address], [place], [address], 08/20/2024 14:54:17 Patient TargetsNo targets recorded. Patient Instructions Encounter Date Encounter Id Patient Instructions Last Modified By Organization Details Last Modified Time 07/21/2024 [id number] Quitting Tobacco : Care Instructions [facility] Not available 07/21/2024 16:04:59 A healthy lifestyle: care instructions [facility] Not available 07/25/2024 19:36:36 08/20/2024 [id number] eating healthy foods: care instructions [facility] Not available 08/31/2024 07:18:36 11/05/2024 [id number] eating healthy foods: care instructions [facility] Not available 11/05/2024 15:26:15 Reason for Referral Referring Physician: Sheeba Markham, Internal Medicine, Encounter Date: 07/21/2024 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) [address] [place], [address], 04/13/2024 11:08:03 04/12/19 25 04/13/2024 TSH+F REE T4 T4,free(dire ct) 0.71 NG/dL 0.82-1 .77 below low normal Not Available [facility] ([facility]) [address] [place], [address], 04/13/2024 11:08:03 04/12/19 25 04/13/2024 LIPID PANEL cholesterol, total 148 mg/dL 100-19 9 Not Available [facility] ([facility]) [address] [place], [address], 04/13/2024 11:08:05 04/12/19 25 04/13/2024 LIPID PANEL triglyceride s 156 mg/dL 0-149 above high normal Not Available [facility] ([facility]) [address] [place], [address], 04/13/2024 11:08:05 04/12/19 25 04/13/2024 LIPID PANEL HDL cholesterol 52 mg/dL >39 Not Available [facility] ([facility]) [address] [place], [address], 04/13/2024 11:08:05 04/12/19 25 04/13/2024 LIPID PANEL VLDL cholesterol nanci 27 mg/dL 5-40 Not Available [facility] ([facility]) [address] [place], [address], 04/13/2024 11:08:05 04/12/19 25 04/13/2024 LIPID PANEL LDL chol calc ([facility]) 69 mg/dL 0-99 Not Available [facility] ([facility]) [address] [place], [address], 04/13/2024 11:08:05 04/12/19 25 04/13/2024 HEPAT IC FUNCT ION PANEL (7) protein, total 5.3 g/dL 6.0-8. 5 below low normal Not Available [facility] ([facility]) [address] [facility] [place], [address], 04/13/2024 11:08:06 04/12/19 25 04/13/2024 HEPAT IC FUNCT ION PANEL (7) albumin 3.0 g/dL 3.9-4. 9 below low normal Not Available [facility] ([facility]) [address] [facility] [place], [address], 04/13/2024 11:08:06 04/12/19 25 04/13/2024 HEPAT IC FUNCT ION PANEL (7) bilirubin, total <0.2 mg/dL 0.0-1. 2 Not Available [facility] ([facility]) [address] [facility] [place], [address], 04/13/2024 11:08:06 04/12/19 25 04/13/2024 HEPAT IC FUNCT ION PANEL (7) bilirubin, direct 0.10 mg/dL 0.00-0 .40 Not Available [facility] ([facility]) [address] [facility] [place], [address], 04/13/2024 11:08:06 04/12/19 25 04/13/2024 HEPAT IC FUNCT ION PANEL (7) alkaline phosphatase 172 IU/L 44-121 above high normal Not Available [facility] ([facility]) [address] [facility] [place], [address], 04/13/2024 11:08:06 04/12/19 25 04/13/2024 HEPAT IC FUNCT ION PANEL (7) AST (SGOT) 53 IU/L 0-40 above high normal Not Available [facility] ([facility]) [address] [facility] [place], [address], 04/13/2024 11:08:06 04/12/19 25 04/13/2024 HEPAT IC FUNCT ION PANEL (7) ALT (SGPT) 29 IU/L 0-32 Not Available [facility] ([facility]) [address] [facility] [place], [address], 04/13/2024 11:08:06 04/12/19 25 04/13/2024 BMP7+ EGFR glucose 79 mg/dL 70-99 Not Available [facility] ([facility]) [address] [facility] [place], [address], 04/13/2024 11:08:07 04/12/19 25 04/13/2024 BMP7+ EGFR BUN 6 mg/dL 8-27 below low normal Not Available [facility] ([facility]) [address] [facility] [place], [address], 04/13/2024 11:08:07 04/12/19 25 04/13/2024 BMP7+ EGFR creatinine 0.44 mg/dL 0.57-1 .00 below low normal Not Available [facility] ([facility]) [address] [facility] [place], [address], 04/13/2024 11:08:07 04/12/19 25 04/13/2024 BMP7+ EGFR eGFR 104 mL/mi n/1.7 3 >59 Not Available [facility] ([facility]) [address] [facility] [place], [address], 04/13/2024 11:08:07 04/12/19 25 04/13/2024 BMP7+ EGFR sodium 144 mmol/ L 134-14 4 Not Available [facility] ([facility]) [address] [facility] [place], [address], 04/13/2024 11:08:07 04/12/19 25 04/13/2024 BMP7+ EGFR potassium 4.4 mmol/ L 3.5-5. 2 Not Available [facility] ([facility]) [address] [place], [address], 04/13/2024 11:08:07 04/12/19 25 04/13/2024 BMP7+ EGFR chloride 108 mmol/ L 96-106 above high normal Not Available [facility] ([facility]) [address] [place], [address], 04/13/2024 11:08:07 04/12/19 25 04/13/2024 BMP7+ EGFR carbon dioxide, total 22 mmol/ L 20-29 Not Available [facility] ([facility]) [address] [place], [address], 04/13/2024 11:08:07 04/12/19 25 04/13/2024 IRON AND TIBC iron bind.cap.(TI BC) 196 ug/dL 250-45 0 below low normal Not Available [facility] ([facility]) [address] [place], [address], 04/13/2024 11:08:08 04/12/19 25 04/13/2024 IRON AND TIBC UIBC 50 ug/dL 118-36 9 below low normal Not Available [facility] ([facility]) [address] [place], [address], 04/13/2024 11:08:08 04/12/19 25 04/13/2024 IRON AND TIBC iron 146 ug/dL 27-139 above high normal Not Available [facility] ([facility]) [address] [place], [address], 04/13/2024 11:08:08 04/12/19 25 04/13/2024 IRON AND TIBC iron saturation 74 % 15-55 above high normal Not Available [facility] ([facility]) [address] [place], [address], 04/13/2024 11:08:08 04/12/19 25 04/13/2024 VITAM IN B12 vitamin B12 >2000 pg/mL 232-12 45 above high normal Not Available [facility] ([facility]) [address] [place], [address], 04/13/2024 11:08:10 04/12/1904/13/2024 EDUARDO TIN ferritin 103 NG/mL 15-150 Not Available [facility] ([facility]) [address] [facility], [place], [address], 04/13/2024 11:08:10 04/12/19 25 04/13/2024 CBC WITH DIFFE RENTI AL/PL ATELE T WBC 8.4 x10e3 /uL 3.4-10 .8 Not Available [facility] ([facility]) [address] [facility], [place], [address], 04/13/2024 11:08:11 04/12/19 25 04/13/2024 CBC WITH DIFFE RENTI AL/PL ATELE T RBC 4.31 x10e6 /uL 3.77-5 .28 Not Available [facility] ([facility]) [address] [facility], [place], [address], 04/13/2024 11:08:11 04/12/19 25 04/13/2024 CBC WITH DIFFE RENTI AL/PL ATELE T hemoglobin 13.4 g/dL 11.1-1 5.9 Not Available [facility] ([facility]) [address] [place], [address], 04/13/2024 11:08:11 04/12/1904/13/2024 CBC WITH DIFFE RENTI AL/PL ATELE T hematocrit 43.0 % 34.0-4 6.6 Not Available [facility] ([facility]) [address] [place], [address], 04/13/2024 11:08:11 04/12/19 25 04/13/2024 CBC WITH DIFFE RENTI AL/PL ATELE T MCV 100 fL 79-97 above high normal Not Available [facility] ([facility]) [address] [place], [address], 04/13/2024 11:08:11 04/12/19 25 04/13/2024 CBC WITH DIFFE RENTI AL/PL ATELE T MCH 31.1 pg 26.6-3 3.0 Not Available [facility] ([facility]) [address] [facility], [place], [address], 04/13/2024 11:08:11 04/12/19 25 04/13/2024 CBC WITH DIFFE RENTI AL/PL ATELE T MCHC 31.2 g/dL 31.5-3 5.7 below low normal Not Available [facility] ([facility]) [address] [facility], [place], [address], 04/13/2024 11:08:11 04/12/19 25 04/13/2024 CBC WITH DIFFE RENTI AL/PL ATELE T RDW 13.1 % 11.7-1 5.4 Not Available [facility] ([facility]) [address] [facility], [place], [address], 04/13/2024 11:08:11 04/12/19 25 04/13/2024 CBC WITH DIFFE RENTI AL/PL ATELE T platelets 402 x10e3 /uL 150-45 0 Not Available [facility] ([facility]) [address] [facility], [place], [address], 04/13/2024 11:08:11 04/12/19 25 04/13/2024 CBC WITH DIFFE RENTI AL/PL ATELE T neutrophils 72 % notest ab. Not Available [facility] ([facility]) [address] [place], [address], 04/13/2024 11:08:11 04/12/19 25 04/13/2024 CBC WITH DIFFE RENTI AL/PL ATELE T lymphs 19 % notest ab. Not Available [facility] ([facility]) [address] [place], [address], 04/13/2024 11:08:11 04/12/19 25 04/13/2024 CBC WITH DIFFE RENTI AL/PL ATELE T monocytes 7 % notest ab. Not Available [facility] ([facility]) [address] [facility], [place], [address], 04/13/2024 11:08:11 04/12/19 25 04/13/2024 CBC WITH DIFFE RENTI AL/PL ATELE T eos 2 % notest ab. Not Available [facility] ([facility]) [address] [facility], [place], [address], 04/13/2024 11:08:11 04/12/19 25 04/13/2024 CBC WITH DIFFE RENTI AL/PL ATELE T basos 0 % notest ab. Not Available [facility] ([facility]) [address] [place], [address], 04/13/2024 11:08:11 04/12/19 25 04/13/2024 CBC WITH DIFFE RENTI AL/PL ATELE T neutrophils (absolute) 6.1 x10e3 /uL 1.4-7. 0 Not Available [facility] ([facility]) [address] [facility], [place], [address], 04/13/2024 11:08:11 04/12/19 25 04/13/2024 CBC WITH DIFFE RENTI AL/PL ATELE T lymphs (absolute) 1.6 x10e3 /uL 0.7-3. 1 Not Available [facility] ([facility]) [address] [place], [address], 04/13/2024 11:08:11 04/12/19 25 04/13/2024 CBC WITH DIFFE RENTI AL/PL ATELE T monocytes(ab solute) 0.6 x10e3 /uL 0.1-0. 9 Not Available [facility] ([facility]) [address] [place], [address], 04/13/2024 11:08:11 04/12/19 25 04/13/2024 CBC WITH DIFFE RENTI AL/PL ATELE T eos (absolute) 0.1 x10e3 /uL 0.0-0. 4 Not Available [facility] ([facility]) [address] [facility], [place], [address], 04/13/2024 11:08:11 04/12/19 25 04/13/2024 CBC WITH DIFFE RENTI AL/PL ATELE T baso (absolute) 0.0 x10e3 /uL 0.0-0. 2 Not Available [facility] ([facility]) [address] [facility], [place], [address], 04/13/2024 11:08:11 04/12/19 25 04/13/2024 CBC WITH DIFFE RENTI AL/PL ATELE T immature granulocytes 0 % notest ab. Not Available [facility] ([facility]) [address] [facility], [place], [address], 04/13/2024 11:08:11 04/12/19 25 04/13/2024 CBC WITH DIFFE RENTI AL/PL ATELE T immature grans (abs) 0.0 x10e3 /uL 0.0-0. 1 Not Available [facility] ([facility]) [address] [facility], [place], [address], 04/13/2024 11:08:11 11/03/19 24 11/03/2023 CT, head, w/o contr ast No observ ation record ed. [email or web address] [facility] [address] [place], [address], 11/03/2023 14:38:43 11/03/19 24 11/03/2023 XR, chest , 2 view No observ ation record ed. [email or web address] [facility] [address] [place], [address], 11/03/2023 20:54:27 12/18/19 24 03/26/2022 imagi ng inter preta tion No observ ation record ed. [address] [place], [address], 12/19/2023 08:41:21 12/30/19 24 12/12/2023 elect roenc ephal ogram (EEG) (PROC ) No observ ation record ed. BARCODE Not Available 2023 09:53:51 05/04/19 25 05/03/2024 XR, chest No observ ation record ed. [address] [place], [address], 05/04/2024 10:34:36 05/04/19 25 05/03/2024 CT, angio gram, chest , w/ contr ast No observ ation record ed. [address] [place], [address], 05/04/2024 10:54:58 05/05/19 25 05/04/2024 XR, chest , 2 view No observ ation record ed. [address] [place], [address], 05/04/2024 10:55:18 05/11/19 25 05/10/2024 XR, chest , 2 view No observ ation record ed. [address] [place], [address], 05/14/2024 01:06:51 06/15/19 25 06/14/2024 XR, chest No observ ation record ed. [facility] [address] [place], [address], 06/14/2024 16:30:54 06/19/19 25 06/18/2024 XR, chest , 2 view No observ ation record ed. [address] [place], [address], 06/19/2024 13:00:36 06/19/19 25 06/18/2024 CT, head, w/o contr ast No observ ation record ed. [address] [place], [address], 06/19/2024 13:01:49 06/19/19 25 06/18/2024 XR, wrist No observ ation record ed. [address] [place], [address], 06/19/2024 13:02:38 Result Notes None recorded. Problems Name Problem SNOMED Code Status Onset Date Resolution Date Notes Provider Name and Address Organization Details Recorded Time Chronic insomnia 687240591 Active 2023 TIMMY Robertson Attn: Leno oliver,[address] [place], [address], [facility] 4 15:06:21 Iron deficiency anemia 58055796 Active 2023 TIMMY Robertson Attn: Leno oliver,[address] [place], [address], [facility] 4 15:06:21 Benign essential hypertension 9849922 Active 2023 TIMMY Robertson Attn: Leno oliver,[address] [place], [address], [place] [facility] 4 15:06:22 Gastroesophage al reflux disease without esophagitis 156723917 Active 2023 TIMMY Robertson Attn: Leno oliver,[address] [place], [address], [place] [facility] 4 15:06:23 Seizure disorder 205913776 Active 2023 TIMMY Robertson Attn: Leno oliver,[address] [place], [address], [place] [facility] 4 15:06:25 Hyperlipidemia 85187971 Active 2023 TIMMY Robertson Attn: Accountin g,[address] [place], [address], [place] [facility] 4 15:06:25 Body mass index less than 20 572160617 Active 2023 TIMMY Robertson Attn: Accountin g,[address] [place], [address], [place] [facility] 4 15:07:04 Impetigo 48793253 Active 2023 TIMMY Robertson Attn: Accountin g,[address] [place], [address], [place] [facility] 4 01:14:01 Long-term drug therapy Active 2023 TIMMY Robertson Attn: Accountin g,[address] [place], [address], [place] [facility] 4 01:14:37 Cigarette smoker 77269133 Active 2024 TIMMY Robertson Attn: Johnniein g,[address] [place], [address], [place] [facility] 5 15:57:59 Smoker 31871007 Active 2024 TIMMY Robertson Attn: Accountin g,[address] [place], [address], [place] [facility] 5 15:58:06 Chronic anemia 664412554 Active 2024 TIMMY Robertson Attn: Accountin g,[address] [place], [address], [place] [facility] 5 19:37:46 Long-term current use of drug therapy 269273557 Active 2024 TIMMY Robertson Attn: Accountin g,[address] [place], [address], [place] [facility] 5 19:37:47 Excessive weight loss 382514688 Active 2024 TIMMY Robertson Attn: Leno oliver,[address] [facility], [place], [address], [place] [facility] 5 19:37:52 Decreased body mass index 5326187 Active 2024 TIMMY Rboertson Attn: Leno oliver,[address] [facility], [place], [address], [place] - [facility] 5 07:16:37 Disorder of vein of lower extremity 918576885 Active 2024 TIMMY Robertson Attn: Leno oliver,[address] [facility], [place], [address], [facility] 5 07:17:07 Problem Notes None recorded. Procedures Surgical History Date Name Laterality Status Provider Name and Address Organization Details Recorded Time hysterectomy completed Peggy Coates MA [facility] 11/28/2023 14:54:03 procedure on stomach completed Peggy Coates [place] [facility] 11/28/2023 14:54:08 Imaging Results None recorded. Procedure Notes None recorded. Medical Equipment None Reported. Allergies Allergen ID Allergen Name Allergen Category Reaction Reaction Severity Criticality Documentation Date Start Date Code Code System Note Provider Name and Address Organization Details Recorded Time gabapenti n medicatio n diarrhea Not available Not available 11/05/2024 64854 RxNorm Peggy Coates [place] null, [place] - [facility] 15:13:14 Medications Name Sig Start Date Stop Date Status Note LastModified by Organization Details LastModified Time carisoprod ol 350 mg tablet TAKE 1 TABLET BY MOUTH TWICE A DAY NEEDED active Not Available Not Available No t Available venlafaxin e ER 75 mg capsule,ex tended release 24 hr TAKE 1 CAPSULE BY MOUTH EVERY DAY WITH FOOD FOR 30 DAYS 11/27 completed Not Available Not Available Not Available triamcinol one acetonide 0.5 % topical cream APPLY A THIN APPLICAT ION ONTO THE LOWER LEG RASH TWICE DAILY NEEDED active Not Available Not Available No t Available levetirace ga 500 mg tablet TAKE 1 TABLET BY MOUTH TWICE A DAY. MAKE/ADÁN P APPOINTM ENT 11/27 completed Not Available Not Available Not Available clonazepam 0.5 mg tablet TAKE 1 TABLET BY MOUTH TWICE A DAY NEEDED active Not Available Not Available No t Available venlafaxin e ER 150 mg capsule,ex tended release 24 hr TAKE 1 CAPSULE BY MOUTH EVERY DAY WITH FOOD FOR 30 DAYS 11/05 completed pt will stop taking this Not Available Not Available Not Available olanzapine 10 mg tablet TAKE 1 TABLET BY MOUTH EVERY DAY FOR 30 DAYS 11/27 completed Not Available Not Available Not Available amlodipine 2.5 mg tablet TAKE 1 TABLET BY MOUTH EVERY DAY IN THE EVENING 06/03 completed Not Available Not Available Not Available Klor-Con 20 mEq oral packet DISSOLVE CONTENTS OF 1 PACKET IN LIQUID AND TAKE TWICE DAILY DIRECTED 2024 active Not Available Not Available Not Avai lable ciprofloxa klarissa 500 mg tablet TAKE 1 TABLET BY MOUTH TWICE A DAY FOR URINARY DISCOMFO RT 11/27 completed Not Available Not Available Not Available olanzapine 2.5 mg tablet TAKE 1 TABLET BY MOUTH EVERY DAY active Not Available Not Available No t Available omeprazole 40 mg capsule,de layed release TAKE 1 CAPSULE BY MOUTH EVERY DAY active Not Available Not Available No t Available tramadol 50 mg tablet TAKE 1 TABLET BY MOUTH EVERY 8 HOURS NEEDED FOR SEVERE PAIN (RATED 7-10 ON SCALE) 11/27 completed Not Available Not Available Not Available triamcinol one acetonide 0.1 % topical cream APPLY A THIN LAYER TO THE AFFECTED AREA(S) OF LOWER LEGS 2 TIMES PER DAY FOR 7-10 DAYS active Not Available Not Available No t Available spironolac tone 25 mg tablet TAKE 1 TABLET BY MOUTH EVERY DAY 2024 active Not Available Not Available Not Avai lable carvedilol 3.125 mg tablet TAKE 1 TABLET BY MOUTH TWICE A DAY 11/27 completed Not Available Not Available Not Available potassium chloride ER 20 mEq tablet,ext ended release(pa rt/cryst) TAKE 1 TABLET BY MOUTH TWICE A DAY FOR TACHYCAR FRANCINE active Not Available Not Available No t Available benzonatat e 100 mg capsule 100 MILLIGRA M(S) BY MOUTH THREE TIMES A DAY NEEDED FOR COUGH 07/21 completed Not Available Not Available Not Available ferrous sulfate 325 mg (65 mg iron) tablet TAKE 1 TABLET BY MOUTH EVERY DAY WITH BREAKFAS T active Not Available Not Available No t Available nicotine 21 mg/24 hr daily transderma l patch APPLY 1 PATCH ONCE DAILY DIRECTED . NO CIGARETT E SMOKING. active Not Available Not Available No t Available megestrol 40 mg tablet TAKE 1 TABLET BY MOUTH TWICE A DAY 2024 active Not Available Not Available Not Avai lable gentamicin 0.1 % topical cream APPLY A THIN LAYER WITH THE TRIAMCIN OLONE CREAM TWICE DAILY TO LOWER LEG RASH NEEDED active Not Available Not Available No t Available mirtazapin e 45 mg tablet TAKE 1 TABLET BY MOUTH EVERY DAY active Not Available Not Available No t Available diltiazem CD 120 mg capsule,ex tended release 24 hr TAKE 1 CAPSULE BY MOUTH EVERY DAY active Not Available Not Available No t Available folic acid 1 mg tablet TAKE 1 TABLET BY MOUTH EVERY DAY active Not Available Not Available No t Available olanzapine 15 mg tablet TAKE 1 TABLET BY MOUTH EVERY DAY FOR 30 DAYS 07/21 completed Not Available Not Available Not Available levetirace ga 750 mg tablet TAKE 1 TABLET BY MOUTH EVERY 12 HOURS active Not Available Not Available No t Available mupirocin 2 % topical ointment APPLY A SMALL AMOUNT TO THE AFFECTED AREA UNDER NOSE BY TOPICAL ROUTE 3 TIMES PER DAY 08/20 completed Not Available Not Available Not Available zolpidem 5 mg tablet TAKE 1 TABLET BY MOUTH EVERYDAY AT BEDTIME 2024 active Not Available Not Available Not Avai lable rosuvastat in 5 mg tablet TAKE 1 TABLET BY MOUTH EVERY OTHER DAY 2024 active Not Available Not Available Not Avai lable Wixela Inhub 100 mcg-50 mcg/dose powder for inhalation TAKE 1 PUFF BY MOUTH TWICE A DAY *RINSE MOUTH AFTER USE* active Not Available Not Available No t Available Vitals Date Recorded Respiratory rate Systolic And Diastolic Provider Name and Address Organization Details Last Updated DateTime 07/21/2024 16 /min 90/60 mm[Hg] TIMMY Robertson Attn: Accounting,[address] [place], [address], [place] [facility] 07/21/2024 16:05:43 Date Recorded Body height Body mass index (BMI) Body weight Oxygen saturation Oxygen saturation in Arterial blood by Pulse oximetry Heart rate Systolic And Diastolic Provider Name and Address Organization Details Last Updated DateTime 167.64 cm 12.9 kg/m2 82552.3 1 g 98 % 98 % 96 /min 112/82 mm[Hg] Peggy Coates MA [facility] 15:33:14 Date Recorded Respiratory rate Systolic And Diastolic Provider Name and Address Organization Details Last Updated DateTime 08/20/2024 16 /min 100/60 mm[Hg] TIMMY Robertson Attn: Accounting[address] [place], [address], [facility] 08/20/2024 14:50:27 Date Recorded Body height Body mass index (BMI) Body weight Heart rate Oxygen saturation Oxygen saturation in Arterial blood by Pulse oximetry Systolic And Diastolic Provider Name and Address Organization Details Last Updated DateTime 167.64 cm 13.2 kg/m2 84951.8 6 g 111 /min 96 % 96 % 98/70 mm[Hg] Brayden Yu MA [facility] 14:36:26 Date Recorded Respiratory rate Systolic And Diastolic Provider Name and Address Organization Details Last Updated DateTime 11/05/2024 18 /min 90/62 mm[Hg] TIMMY Robertson Attn: Accounting, [place], [address], [facility] 11/05/2024 15:33:05 Date Recorded Body height Body mass index (BMI) Body weight Heart rate Oxygen saturation Oxygen saturation in Arterial blood by Pulse oximetry Systolic And Diastolic Provider Name and Address Organization Details Last Updated DateTime 167.64 cm 14.7 kg/m2 04895.9 1 g 97 /min 100 % 100 % 112/72 mm[Hg] Peggy Coates MA [facility] 15:15:42 Date Recorded Systolic And Diastolic Provider Name and Address Organization Details Last Updated DateTime 11/28/2023 110/80 mm[Hg] TIMMY Robertson Attn: Accounting[address] [place], [address], [facility] 11/28/2023 15:11:31 Date Recorded Respiratory rate Body weight Body mass index (BMI) Body height Oxygen saturation Oxygen saturation in Arterial blood by Pulse oximetry Heart rate Systolic And Diastolic Provider Name and Address Organization Details Last Updated DateTime 20 /min 03238.3 4 g 15.8 kg/m2 167.64 cm 96 % 96 % 102 /min 122/82 mm[Hg] Peggy Coates MA [facility] 14:57:43 Social History Question Answer Notes LastModified by Organizat ion Details LastModified Time Tobacco Smoking Status Current Every Day Smoker Peggy Coates [place] null, [place] [facility] 11/28/2023 14:55:49 Do You Have An Advance Directive? Yes Information not available 11/28/2023 Are You Blind Or Do You Have Difficulty Seeing? No Glasses Information not available 11/28/2023 What Is Your Level Of Caffeine Consumption? Occasional Soda Information not available 11/28/2023 In The 14 Days Before Symptom Onset, Have You Had Close Contact With A Laboratory-confir med COVID-19 While That Case Was Ill? No Information not available 11/28/2023 In The 14 Days Before Symptom Onset, Have You Had Close Contact With A Person Who Is Under Investigation For COVID-19 While That Person Was Ill? No Information not available 11/28/2023 Have You Been To An Area Known To Be High Risk For COVID-19? No Information not available 11/28/2023 Are You Deaf Or Do You Have Serious Difficulty Hearing? Yes Information not available 11/28/2023 What Type Of Diet Are You Following? REGULAR Information not available 11/28/2023 Are There Any Guns Present In Your Home? No Information not available 11/28/2023 What Was The Date Of Your Most Recent Tobacco Screening? 11/05/2024 Information not available 11/05/2024 What Is Your Current Pack Years? 30ormorepackye ars Information not available 11/28/2023 Do You Use Your Seat Belt Or Car Seat Routinely? Yes Information not available 11/28/2023 Do You Have Smoke And Carbon Monoxide Detectors In Your Home? Yes Information not available 11/28/2023 How Much Tobacco Do You Smoke? 1 PPD Information not available 07/21/2024 Do You Use Sunscreen Routinely? No Information not available 11/28/2023 Has Tobacco Cessation Counseling Been Provided? Yes Information not available 11/28/2023 On What Date Was Tobacco Cessation Counseling Provided? 11/05/2024 Information not available 11/05/2024 How Many Years Have You Smoked Tobacco? 37 Information not available 11/28/2023 Sex: Female Functional Status Question Answer Note LastModified by Organizat ion Details LastModified Time Do you use any illicit or recreational drugs? No Information not available 11/28/2023 Do you or have you ever used any other forms of tobacco or nicotine? Yes Information not available 11/05/2024 What is your level of alcohol consumption? Occasional Information not available 11/28/2023 Do you or have you ever used smokeless tobacco? Never used smokeless tobacco Information not available 11/05/2024 Are you able to care for yourself independently? Yes Information not available 11/28/2023 Do you or have you ever used e-cigarettes or vape? Current user of electronic cigarettes Information not available 11/05/2024 What is your exercise level? None Information not available 11/28/2023 Mental Status None recorded. Family History Nothing Reported. Medical History Condition Response Coronary Artery Disease N Other N Atrial Fibrillation N High Blood Pressure Y Depression Y COPD Y Blood Clots N Anxiety Disorder Y Muscle, Joint, or Bone Problems N Acid Reflux (GERD) Y Cancer N Stroke N Headaches N Kidney or Bladder Problems N Have you had a mammogram in the last yea r? N Skin Problems N Asthma N Allergies Y Have you had a PSA blood test in the las t year? N Hepatitis N High Cholesterol N Liver Disease N Thyroid Problems N GI Problems N Anemia N Heart Attack ([place]) N Diabetes N Seizures/Epilepsy Y Have you had a colonoscopy in the last 1 0 years? N Heart Failure N Osteoporosis N Gynecological History Statement/Question Response Menses Monthly N Current Control Method None Obstetrics History GPAL:G 0 P 0 0 0 0 Immunizations Vaccine Type Date Status Note Provider Nam e and Address Organization Details Recorded Time Influenza, high-dose, quadrivalent, PF 2 completed JENNIE [place]jo, [place] - [facility] 01/09/2024 13:06:58 Influenza, adjuvanted, quadrivalent, PF 3 [place] [facility] 01/09/2024 13:06:58 COVID-19, mRNA, LNP-S, PF, 100 mcg/0.5mL dose or 50 mcg/0.25mL dose 1 [place] [facility] 01/09/2024 13:06:58 COVID-19, mRNA, LNP-S, PF, 100 mcg/0.5mL dose or 50 mcg/0.25mL dose 1 [place] [facility] 01/09/2024 13:06:58 COVID-19, mRNA, LNP-S, PF, 30 mcg/0.3 mL dose 1 [place] [facility] 01/09/2024 13:06:58 COVID-19, mRNA, LNP-S, PF, 30 mcg/0.3 mL dose, azeb-sucrose 2 [place] [facility] 01/09/2024 13:06:58 COVID-19, mRNA, LNP-S, bivalent, PF, 30 mcg/0.3 mL dose 2 completed Peggy Coates [place], [place] [facility] 01/09/2024 13:06:58 COVID-19, mRNA, LNP-S, PF, azeb-sucrose, 30 mcg/0.3 mL 3 [place] [facility] 01/09/2024 13:06:58 influenza, unspecified formulation 8 completed [place] [facility] 01/09/2024 13:06:58 Pneumococcal conjugate PCV 13 7 [place] [facility] 01/09/2024 13:06:58 Influenza, split virus, trivalent, preservative 4 completed [place] [facility] 01/09/2024 13:06:58 Influenza, split virus, trivalent, PF 3 completed [place] [facility] 01/09/2024 13:06:58 Influenza, split virus, quadrivalent, PF 7 completed [place] [facility] 01/09/2024 13:06:58 Influenza, split virus, quadrivalent, PF 5 completed [place] [facility] 01/09/2024 13:06:58 influenza, unspecified formulation 4 completed [place] [facility] 01/09/2024 13:08:29 COVID-19, mRNA, LNP-S, PF, azeb-sucrose, 30 mcg/0.3 mL 4 completed [place] 01/09/2024 13:09:12 Past Encounters Encounter ID Performer Location Encounter Start Date Encounter Closed Date Diagnosis/Indication Diagnosis SNOMED-CT Code Diagnosis ICD10 Code Diagnosis IMO Codes Diagnosis Note [id number] Pola Lou MD [facility] [address] [place] [address] 11/28/2023 14:18:45 11/28/2023 15:36:38 Hyperlipidemia 81641174 E78.5 Continue rosuvastat in 5 mg daily and check an updated fasting lipid panel Seizure disorder 5474456 02 G40.909 Continue manage with with neurologis t taking Keppra 750 mg twice daily Gastroesop hageal reflux disease without esophagitis 513848865 K21.9 Continue omeprazole 40 mg daily Benign ess ential hypertension 6622298 I10 Blood pressure stable 110/80, continue amlodipine 2.5 mg daily Iron defic iency anemia 04625573 D50.9 History of iron deficiency anemia is present and updated labs were ordered Chronic insomnia 2025353 04 F51.04 Stable on zolpidem 5 mg at bedtime Long-term drug therapy 848004263 Z79.899 All routine labs are due Body mass index less than 20 949666217 Z68.1 BMI is 15.8 and patient has been improving her dietary nutritiona l intake since her hospitaliz ations Impetigo 30955974 L01.00 Patient has a small patch of impetigo under her nose which maybe Bactroban ointment has been given [id number] Poal Lou MD [facility] [employer] [facility] [place] [address] [place] [address] 07/21/2024 15:10:12 07/21/2024 16:12:25 Body mass index less than 20 936492515 Z68.1 BMI is 12.9 and patient has been improving her dietary nutritiona l intake since her hospitaliz ations Excessive weight loss 30 3666277 R63.4 [id number] Refer for speech therapy evaluation as well as nutrition evaluation and consult. Start trial of Megace 40 mg twice daily and check updated thyroid function testing and A1c Benign ess ential hypertension 1341394 I10 Blood pressure 90/60. Currently the patient is on diltiazem CD 120 mg daily instead of amlodipine . She is stable currently on the dosing Seizure disorder 1896869 02 G40.909 Continue manage with with neurologis t taking Keppra 750 mg twice daily Chronic insomnia 0790914 04 F51.04 Stable on zolpidem 5 mg at bedtime Smoker 15471395 F17.200 Long discussion about smoking cessation she is agreeable to nicotine patches but has been instructed that under no circumstan thanh is she also does smoke cigarettes while a nicotine patch is in place. If she can not adhere to cessation from cigarettes she will have to remove the nicotine patch Long-term current use of drug therapy 612876242 Z79.899 [id number] All routine labs are due Chronic anemia 845186030 D64.9 997254 Patient has a history of anemia and recent evaluation s likely nutritiona lly related but we will check updated iron studies and B12 with folate [id number] Pola Lou MD [facility] [employer] [facility] [place] [address] [place] [address] 08/20/2024 14:29:44 08/20/2024 15:27:59 Excessive weight loss 635558226 R63.4 Continue megestrol 40 mg twice daily for appetite stimulant Underweight 201992061 R6 3.6 Z68.0 2607084606 BMI is 13.2 only 1 lb of weight gain since last visit 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 Repeat thyroid labs Benign ess ential hypertension 2132586 I10 Blood pressure 90/62. Currently the patient is on diltiazem CD 120 mg daily instead of amlodipine . She is stable currently on the dosing Long-term current use of drug therapy 147592722 Z79.899 72500343 All routine labs are due Cigarette smoker 8183367 7 F17.210 [id number] Unfortunat wilson patient was not adherent to nicotine patches and has not quit smoking. She will reach out for assistance when she desires Health Concerns Section Related Observation LastModified by Organization Detai ls LastModified Time None Recorded Concern Status LastModified by Organization Details LastModified Time None Recorded Advance Directives Directive Y: Payers Insurance Date Sequence Insurance Name Policy Number Policy Figueredo Covered Member ID Figueredo Member ID Guarantor Name 07/21/2024 1 [facility] - DOS PRIOR TO 2024 ([facility]) [id number] Tita Alvarez [id number] MANN Tita Alvarez 07/21/2024 2 MEDICARE-PR (MEDICARE) Tita Alvarez [id number] Tita Alvarez 07/21/2024 2 [facility] - DOS 03/03/2024 AND AFTER Tita Alvarez [id number] Tita Alvarez 11/16/2024 1 [facility] - DOS 03/03/2024 AND AFTER [id number] Tita Alvarez [id number] Tita Alvarez 07/21/2024 1 [facility] DOS 03/03/2024 AND AFTER [id number] Tita Alvarez [id number] MANN Tita Alvarez Notes Date Note Type Note Provider Name and Address Organization Details Recorded Time 4 text/html HyperlipidemiaReported by PatientHyperlipidemia is managed with rosuvastatin 5 mg daily patient is due for labs InsomniaReported by PatientChronic insomnia is managed with zolpidem 5 mg at night HypertensionReported by PatientHypertension is managed with 2.5 mg of amlodipine Anxiety/DepressionReported by PatientChronic anxiety and depression is managed with psychiatrist and patient is taking venlafaxine ER 150 mg daily, olanzapine 2.5 mg daily, mirtazapine 45 mg daily and clonazepam 0.5 mg p.r.n. Reflux/GERDReported by PatientChronic acid reflux treated with omeprazole 40 mg daily Seizure disorder: Patient is stable following Neurology and takes Keppra 750 mg twice a day which is an increase dose after she did have some hospitalization for seizure breakthrough. TIMMY Robertson Attn: Accounting,[address] [place] [address], [address], [place] [facility] 12/05/2023 01:15:41 5 text/html HyperlipidemiaReported by PatientHyperlipidemia is managed with rosuvastatin 5 mg daily patient is due for labs InsomniaReported by PatientChronic insomnia is managed with zolpidem 5 mg at night HypertensionReported by PatientHypertension is managed with 2.5 mg of amlodipine Anxiety/DepressionReported by PatientChronic anxiety and depression is managed with psychiatrist and patient is taking venlafaxine ER 150 mg daily, olanzapine 2.5 mg daily, mirtazapine 45 mg daily and clonazepam 0.5 mg p.r.n. Reflux/GERDReported by PatientChronic acid reflux treated with omeprazole 40 mg daily Seizure disorder: Patient is stable following Neurology and takes Keppra 750 mg twice a day which is an increase dose after she did have some hospitalization for seizure breakthrough on a couple occasions. She has recently been discharged from rehab in the last week or so and having home therapy. Concerns for continued excessive weight loss which have been reported from home health therapy staff member yesterday see case note. Suggestion has been made for speech therapy as well as a food management aide. We will facilitate those orders Patient does continue to smoke cigarettes after returnin from rehab. TIMMY Robertson Attn: Accounting,[address] [facility], [place], [address], [facility] - [facility] 07/25/2024 19:38:08 5 text/html Seizure disorder: Patient is stable following Neurology and takes Keppra 750 mg twice a day which is an increase dose after she did have some hospitalization for seizure breakthrough on a couple occasions. She has recently been discharged from rehab in the last week or so and having home therapy. Concerns for continued excessive weight loss. She has gained a little over a lb. Patient is here for a weight check today TIMMY Robertson Attn: Accounting,[address] [facility], [place], [address], [facility] 08/31/2024 07:18:55 5 text/html Seizure disorder: Patient is stable following Neurology and takes Keppra 750 mg twice a day which is an increase dose after she did have some hospitalization for seizure breakthrough on a couple occasions. She has recently been discharged from rehab in the last week or so and having home therapy. She is feeling like she is getting a little bit stronger. She has gained a little bit of weight and her appetite is better. Unfortunately she is still smoking. She was not able to be adherent to the nicotine patch plan for cessation. Patient is here for a weight check today. She has gained 10 lb since August TIMMY Robertson Attn: Accounting,[address] [facility], [place], [address], [facility] 11/11/2024 16:54:41 OBGyn Episode Ob Episode Information Episode Created Date Number of Fetuses Patient Bloodtype Patient rh Status Prepregnancy Weight lbs Domestic Partner Domestic Partner Phone Father Name Hematology Technologist Status 12/28/19 25 1 DELETED Fetus Data First Name Last Name Admitted to NICU Weight (g) Sex Living Outcome Pediatric Complications Fetus ID Race Codes Race Delivery Type [id number] Garo Calculation Initial Garo Date Initial Exam Date Initial Exam Provider Initial Ultrasound Date Last Menstrual Period Date Ultra Sound Weeks Gestation 12/27/2024 0 Eighteen To Twenty Week Garo Update Ultra Sound Date Fundal Height At Umbil Quickening Date Ultra Sound Latest Weeks Gestation Final Garo Confirmed By Final Garo Confirmed Date Final Garo Date Ultra Sound Latest Days Gestation 0 0 Menstrual History Last Menstrual Date Menses Monthly On Bcp Conception Prior Menses Frequency Hcg Plus Date Menarche Onset Age Delivery Information Delivery Date Delivery Type Labor Anesthesia Weeks Gestation Incision Type Labor Labor Length Hrs Delivered By Post Complications Tubal Sterilization Discharge Date Comments Discharge Information Feeding Method Contraceptive Method Maternal HG B and HCT Levels
[2025-01-06 22:29] LABS: Vitamin B12 667.0 pg/mL (239-931)
[2025-01-07 16:08] LABS: ANA by IFA Rfx Titer/Pattern Negative (.)
[2025-01-10 14:08] LABS: Immunoglobulin A, Qn 131 mg/dL (87-352); Immunoglobulin G, Qn 745 mg/dL (586-1602); Immunoglobulin M, Qn 152 mg/dL (26-217)
== END 2025-01-06 12:41 | disposition home or self-care (01) ==
PROVIDERS: PCP Physician Assistant; Visit Provider Psychiatry & Neurology Neurology
DX: Z13.1 Encounter for screening for diabetes mellitus (principal); G40.909 Epilepsy, unspecified, not intractable, without status epilepticus; G62.9 Polyneuropathy, unspecified; G56.23 Lesion of ulnar nerve, bilateral upper limbs
CPT/HCPCS: 36415; 80177; 82306; 82607; 82746; 82784; 82951; 83036; 83090; 86038; 86334; 86430